=== PATIENT | female | born 1990 | race Hispanic/Latino ===

== ENCOUNTER 2018-01-11 10:04 | Emergency (ER) | payer OTHER ==
[2018-01-11] MEDS ORDERED: LIDOCAINE HCL 1% 20 ML VIAL ONE (10:25)
== END 2018-01-11 11:18 | disposition home or self-care (01) ==
LOC: EDH 10:04
DX: L03.115 Cellulitis of right lower limb (principal); Z88.8 Allergy status to other drugs, medicaments and biological substances; Z79.899 Other long term (current) drug therapy
CPT/HCPCS: 10060

== ENCOUNTER 2018-03-15 19:46 | Emergency (ER) | payer OTHER ==
[2018-03-15] MEDS ORDERED: DEXAMETHASONE SOD PHOSPHATE 10MG/ML 1ML VIAL ONE (20:21)
[2018-03-15 21:05] LABS: HCG,QUAL RESULT NEGATIVE (NEGATIVE)
[2018-03-15 21:08] LABS: APPEARANCE,URINE Cloudy (CLEAR); BILIRUBIN,URINE Negative (NEGATIVE); GLUCOSE, URINE (UA) Negative (NEGATIVE); KETONES,URINE Negative (NEGATIVE); LEUKOCYTE ESTERASE ,URINE Small (NEGATIVE); NITRATE,URINE Negative (NEGATIVE); OCCULT BLOOD,URINE Large (NEGATIVE); PROTEIN,URINE POS 2+ (NEGATIVE); UROBILINOGEN,URINE 0.2 mg/dL (0.2-1.0)
[2018-03-15 21:09] LABS: COLOR,URINE YELLOW (YELLOW)
[2018-03-15 21:20] LABS: BACTERIA,URINE Few /HPF (None Seen)
== END 2018-03-15 21:47 | disposition home or self-care (01) ==
LOC: EDH 19:46
DX: G89.29 Other chronic pain (principal); M54.5 Low back pain; Z98.51 Tubal ligation status; Z88.6 Allergy status to analgesic agent; F41.9 Anxiety disorder, unspecified
CPT/HCPCS: 81001; 81025; 87077; 87088; 87186; 96372; 99284; J1100

== ENCOUNTER → 2021-06-19 | Outpatient (CLI) | payer OTHER | END | disposition home or self-care (01) | LOC: RAH 11:08 | PROVIDERS: ATTEND Family Medicine | DX: R05 Cough (principal) | CPT/HCPCS: 71046 ==